=== PATIENT | female | born 1950 | race Caucasian/White ===

== ENCOUNTER 2021-05-06 09:32 | Outpatient (REF) | payer MEDICARE, SELFPAY | END 2021-05-06 09:33 | disposition home or self-care (01) | LOC: HO.LAB 09:32 | PROVIDERS: PCP Family Medicine | DX: N20.0 Calculus of kidney (principal); N28.1 Cyst of kidney, acquired; N30.10 Interstitial cystitis (chronic) without hematuria | CPT/HCPCS: 87086; 87088; 87186; 99212 ==

== ENCOUNTER → 2021-07-04 08:50 | Outpatient (BNVA) | payer MEDICARE, SELFPAY | PROVIDERS: PCP Family Medicine | DX: N30.10 Interstitial cystitis (chronic) without hematuria (principal); N20.0 Calculus of kidney | CPT/HCPCS: Q3014 ==

== ENCOUNTER 2021-10-02 09:44 | Outpatient (REF) | payer MEDICARE, SELFPAY | END 2021-10-02 09:45 | disposition home or self-care (01) | LOC: HO.LAB 09:44 | PROVIDERS: PCP Family Medicine | DX: N30.10 Interstitial cystitis (chronic) without hematuria (principal) | CPT/HCPCS: 87086; 87088; 87186; 99212 ==

== ENCOUNTER → 2022-05-22 08:55 | Outpatient (BNVA) | payer MEDICARE, SELFPAY | PROVIDERS: PCP Family Medicine; Visit Provider Urology | DX: N30.10 Interstitial cystitis (chronic) without hematuria (principal); N28.1 Cyst of kidney, acquired; Z87.442 Personal history of urinary calculi | CPT/HCPCS: Q3014 ==

== ENCOUNTER 2022-11-19 09:47 | Outpatient (REF) | payer MEDICARE, SELFPAY ==
[2022-11-19 16:16] LABS: Urine Cytology See Pathology rpt
== END 2022-11-19 09:48 | disposition home or self-care (01) ==
LOC: HO.LAB 09:47
PROVIDERS: PCP Family Medicine; Visit Provider Urology
DX: N30.10 Interstitial cystitis (chronic) without hematuria (principal); N28.1 Cyst of kidney, acquired; Z87.442 Personal history of urinary calculi
CPT/HCPCS: 87086; 88112; 99212

== ENCOUNTER 2023-11-18 08:50 | Outpatient (AMB) | payer MEDICARE, SELFPAY ==
--- NOTE | 2023-11-18 07:36 | A.OFFVIS_ITS ---
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 The patient also has history of kidney stones. She states she has been doing very well. She is stopped using the Estrace cream. She drinks 2 cups of coffee, avoid juices, and tries to drink more water. She denies recurrent bladder pain. She does have urinary frequency which is more bothersome during the night because she has trouble falling back to sleep. She is managed with diet and behavioral modification. Urinalysis-blood 2+. Plan discussed will send urine for cytology. Re-evaluate kidneys, renal ultrasound. If results are normal limits will have her follow-up in 1 year. Review of chart: 11/19/2022-- followed by urology for interstitial cystitis and history of kidney stones. States doing well overall. States having nocturia episodes for the past few days. ----LV?05/22/22-- Office visit was by telemedicine. had a renal u/s to FU bilateral renal cysts. has been followed by urology for interstitial cystitis and history of kidney stones. Currently she states that her bladder symptoms are stable she denies bladder pain or urgency. I have reviewed renal ultrasound results with the patient bilateral simple renal cysts are stable. 11/19/22--Evaluation today: Blood: ?200 Jeanmarie/uL, leukocytes:?125 Juani/uL. Plan--Advised to cut down on caffeine consumption. Advised to consume less spicy food. Advised to consume 45-60 ounce of fluids. Cut down on soda. Urine for culture was ordered. Follow-up in one year or sooner if needed. 11/18/2023-- Plan discussed will send urine for cytology. Re-evaluate kidneys, renal ultrasound. If results are normal limits will have her follow-up in 1 year. [facility] Medical History History of kidney stones Interstitial cystitis Social History Alcohol intake: never Patient Tobacco Use Status: Current someday Tobacco user Cigarettes Per Day: 2 Review of Systems Const All systems reviewed & are unremarkable except as noted in HPI and below Reports no additional complaints Eyes Reports no additional complaints ENT Reports no additional complaints Card Reports no additional complaints Resp Reports no additional complaints GI Reports no additional complaints Reports as per HPI Musc Reports no additional complaints Skin/Breast Reports system reviewed and no additional complaints, except as documented Neuro Reports no additional complaints Psych Reports no additional complaints Endo Reports no additional complaints Fabián/Lymph Reports no additional complaints Aller/Immun Reports no additional complaints Results AMB Urinalysis, Automated UA Leukoctes 15 Juani/uL Last Edit by GIANFRANCO Eden on 11/18/23 09:48 UA Nitrite Negative Last Edit by GIANFRANCO Eden on 11/18/23 09:48 UA Urobilinogen 0.2 mg/dL Last Edit by GIANFRANCO Eden on 11/18/23 09:4 8 UA Protein 15 mg/dL Last Edit by GIANFRANCO Eden on 11/18/23 09:48 UA pH 6.5 Last Edit by GIANFRANCO Eden on 11/18/23 09:48 UA Blood 80 Jeanmarie/uL Last Edit by GIANFRANCO Eden on 11/18/23 09:48 2+ Mary Farfan 11/18/23 09:48 UA Specific [place] 1.015 Last Edit by GIANFRANCO Eden on 11/18/23 09: 48 UA Ketone Negative Last Edit by GIANFRANCO Eden on 11/18/23 09:48 UA Bilirubin 0 mg/dL Last Edit by GIANFRANCO Eden on 11/18/23 09:48 UA Glucose 0 mg/dL Last Edit by Mary Farfan GIANFRANCO on 11/18/23 09:48 Assessment & Plan Assessment & Plan (1) Interstitial cystitis: Comment: Continue to be free of bladder pain Code(s): N30.10 - Interstitial cystitis (chronic) without hematuria Category: Medical (2) Renal cyst: Comment: Discussed bilateral renal cyst - characteristics of simple cyst. FU imaging for this diagnosis not indicated Code(s): N28.1 - Cyst of kidney, acquired Category: Medical (3) History of kidney stones: Code(s): Z87.442 - Personal history of urinary calculi Category: Medical Plan Plan discussed will send urine for cytology. Re-evaluate kidneys, renal ultrasound. If results are normal limits will have her follow-up in 1 year. Orders: Orders AMB Urinalysis Automated Today Z13.9 - Encounter for screening, unspecified US renal BI Today N28.1 - Cyst of kidney, acquired, Z87.442 - Personal history of urinary calculi Patient Instructions: The patient had an opportunity to ask questions regarding treatment plan. The patient expressed understanding and agreement with the above treatment plan. The patient is aware they should contact our office by phone for worsening of their current condition or the appearance of new symptoms. Compliance is encouraged with any medications and followup testing that is ordered. It is a privilege to be allowed the opportunity to participate in the urologic care of your patient. If you have any questions or concerns regarding treatment for the above conditions please do not hesitate to contact me. The office telephone contact is [phone]. This note is constructed in part using voice recognition software. While every effort has been made to ensure accuracy image consultant errors may have been included. Yours sincerely, Veronica Hatfield MD Coding Level of Care Code Est Pt Level 4 (17640) Diagnoses Interstitial cystitis N30.10 Renal cyst N28.1 History of kidney stones Z87.442
== END 2023-11-18 09:57 | disposition home or self-care (01) ==
PROVIDERS: PCP Family Medicine; Visit Provider Urology
DX: N30.10 Interstitial cystitis (chronic) without hematuria (principal); N28.1 Cyst of kidney, acquired; Z87.442 Personal history of urinary calculi; Z13.9 Encounter for screening, unspecified
CPT/HCPCS: 99214

== ENCOUNTER → 2023-11-18 08:50 | Outpatient (BNVA) | payer MEDICARE, SELFPAY | PROVIDERS: Visit Provider Urology | DX: N30.10 Interstitial cystitis (chronic) without hematuria (principal); N28.1 Cyst of kidney, acquired; Z87.442 Personal history of urinary calculi | CPT/HCPCS: 81003; 99212 ==